=== PATIENT | male | born 1965 | race Caucasian/White ===

== ENCOUNTER → 2023-11-25 07:26 | Outpatient (REF) | payer BC, SELFPAY | LOC: MRI 3T 07:26 | PROVIDERS: ATTENDING PHYSICIAN Family Medicine | DX: C61 Malignant neoplasm of prostate (principal); H34.01 Transient retinal artery occlusion, right eye | CPT/HCPCS: 70553; A9575 ==

== ENCOUNTER → 2024-01-22 07:28 | Outpatient (REF) | payer BC, SELFPAY | LOC: MRI 3T 07:28 | PROVIDERS: ATTENDING PHYSICIAN Specialist; FAMILY PHYSICIAN Family Medicine | DX: I77.71 Dissection of carotid artery (principal) | CPT/HCPCS: 70544; 70549; A9585 ==

== ENCOUNTER → 2024-02-26 14:30 | Outpatient (REF) | payer BC, SELFPAY | LOC: PAVMRI 14:30 | PROVIDERS: ATTENDING PHYSICIAN Specialist; FAMILY PHYSICIAN Family Medicine | DX: M54.12 Radiculopathy, cervical region (principal) | CPT/HCPCS: 72141 ==